=== PATIENT | male | born 1995 | race Caucasian/White ===

== ENCOUNTER 2024-07-26 11:26 | Emergency (ER) | payer OTHER, SELFPAY ==
--- NOTE | ~2024-07-26 | CT_ITS ---
EXAMINATION: CT HEAD WITHOUT CONTRAST CLINICAL INFORMATION: bruise behind R ear COMPARISON: April 14, 2019 is not available on PACS. TECHNIQUE: Contiguous axial imaging was performed from the skull base to vertex without intravenous administration of contrast. This CT examination was performed using dose optimization techniques as appropriate, variously including the following: *Automated exposure control *Adjustment of mA and/or kV according to patient size (this includes techniques or standardized protocols for targeted exams where dose is matched to indication/reason for exam; i.e. extremities or head) *Use of iterative reconstruction technique DLP: 1142 mGy-cm FINDINGS: Limited by patient's motion artifact. No acute intracranial hemorrhage, mass effect, midline shift, hydrocephalus or herniation. Charles-white matter differentiation is normal. Posterior cranial fossa contents demonstrated no acute intracranial hemorrhage. Sellar/suprasellar region demonstrated no gross masses. Craniocervical junction is intact. Retention cysts versus polyp in the posterior left ethmoid air cells. Tympanic cavities and mastoid cells are aerated. Dystrophic calcifications in the soft tissues of the ears. CT/CT head/brain wo IV con IMPRESSION: No acute intracranial hemorrhage or acute brain abnormality by CT. Electronically signed by: Aron Bustillo MD 07/26/2024 03:05 PM EDT
--- NOTE | ~2024-07-26 | XR_ITS ---
EXAMINATION: XR HAND AND WRIST COMPLETE LEFT HISTORY: pain COMPARISON: Comparison is made with the prior examination dated 04/14/2019. FINDINGS: Four views of the left wrist including a scaphoid view are submitted. Osseous mineralization is normal. There is no fracture or dislocation. The joint spaces are preserved. The soft tissues are unremarkable. XR/XR hand wrist LT IMPRESSION: Unremarkable examination of the left wrist. Electronically signed by: Surendra Ko MD 07/26/2024 11:52 AM EDT
[2024-07-26 11:34] VITALS: PULSE 84; RESP 18; TEMP 36.6; O2SAT 97; BMI 27.1
--- NOTE | 2024-07-26 11:34 | ED.GENADULT ---
HPI - General Adult General Chief complaint: General Medical Stated complaint: lump behind r ear Time Seen by Provider: 07/26/24 14:12 Source: patient and other (caregiver) Mode of arrival: ambulatory Limitations: other (some limitations with his autism) History of Present Illness ED Provider: DARLYN HPI narrative: 28 yo male with PMH of autism, intellectual disability, who [facility] jail they noted a bruise on his L hand today and also a bruise behind R ear - no falls or other signs of trauma he does have a history of hitting himself. He has 29/11 supervision. No unexplained bleeding/bruising other than behind his R ear complaint: bruiseing Onset (ago): day(s) (1) Location: head, left and upper extremity Radiation: non-radiation Severity: mild Relieving factors: none Exacerbating factors: none Associated symptoms: denies other symptoms Treatments prior to arrival: none Related Data Allergies Allergy/AdvReac Type Severity Reaction Status Date / Time No Known Allergies Allergy Verified 07/26/24 11:40 [No Known Allergies*] Review of Systems Review of Systems: ROS unable to be obtained due to developmental delay [facility] Past Medical History Source: nursing notes reviewed Medical History Intellectual disability Autism Social History Social History Smoked in Last 30 Days: No Use of substances other than those prescribed or required for medical reasons: No Advance Directives: No Advance Directives Information Provided: Yes Physical Exam ED Vital Signs: Vital Signs - 24 hr 07/26/24 11:34 Temperature 97.9 F Pulse Rate 84 Respiratory Rate 18 Pulse Oximetry 97 Oxygen Delivery Method Room Air BMI result Body Mass Index 27.1 Appearance: Alert. Oriented X3. No acute distress. Eyes: Pupils equal, round and reactive to light. ENT: Pharynx normal. behind R ear a a faint light purple half dollar sized bruise that is flat not red no lymphadenopathy the ext and internal ear exam is normal no blood and no hemotympanum very localized t[place] & [place] Neck: Normal inspection. Neck supple. CVS: Normal heart rate and rhythm. Pulses normal. Respiratory: No respiratory distress. Breath sounds normal. Abdomen: Soft and nontender. Skin: Skin warm and dry. Normal skin color. Normal skin turgor. Extremities: No lower extremity edema. No calf ttp L hand soft purple flat bruise no warmth or signs of infection, able to make fist and open hand Neuro: Oriented X 3. No motor deficit. No sensory deficit. CN2-12 intact Course Course Course Narrative: This is an RME: Additional HPI, ROS, PE not included below will be deferred to primary provider. RME assessment and note performed by: Muna Mcguire PA-C This is a [id number], with a hx of autism spectum disorder, intellectual disability, who presents to the ER, accompanied by jail workers, with complaints of emerson behind his left ear which was noticed this morning. Pain also with swelling overlying the 4th and 5th metacarpal bones. Unable to report what happened. R ear with area of erythema and excoriations. Plan: xray, further ER eval needed. Medical Decision Making Medical Decision Making [facility] Narrative: 28 yo male with PMH of autism and developmental delay here with c/o bruise on L hand and behind R ear - no signs of basilar skul fracture no other serious bruising noted to warrant a CBC they both appear older than 24 hours no signs of infection - xray of hand and CT head. If negative will DC home Differential Diagnosis Differential Diagnoses: The differential diagnosis associated with the presentation includes given no acute or signs of bruises that are concerning in other areas will hold off labs I did obtain xray of L hand R ear - CT scan ordered no other signs of basilar skull fracture Independent Interpretation I performed an independent interpretation of an: Plain X-Ray (no trauma) and CT Scan (normal ) Radiology Impression Discussion of test interpretation with radiology: I have reviewed the radiologist's reading. Independent Historian Clinical information obtained from an independent historian. History obtained from or confirmed by: Other External Record Review External record reviewed: Outpatient record Discharge Plan Discharge Clinical Impression: Contusion Patient Disposition: Home, Self-Care Instructions: Bone Bruise (ED) Additional Instructions: xray normal CT head negative for acute fracture return for any worsening symptoms or increased bruising any increase in bruising in unexplained places would warrant a CBC Print Language: Kiswahili
[2024-07-26 14:52] VITALS: BP 116/69; PULSE 67; RESP 14; TEMP 37.3; O2SAT 97
[2024-07-26 14:53] VITALS: BP 116/69
[2024-07-26] MEDS: cloNIDine HCL 0.1 MG TABLET PO (14:53)
[2024-07-26 15:14] VITALS: BP 116/69; PULSE 67; RESP 18; TEMP 37.3; O2SAT 97
== END 2024-07-26 15:28 | disposition home or self-care (01) ==
PROVIDERS: Emergency Provider Emergency Medicine; PCP Internal Medicine
DX: S00.431A Contusion of right ear, initial encounter (principal); S60.222A Contusion of left hand, initial encounter; X83.8XXA Intentional self-harm by other specified means, initial encounter; Y93.9 Activity, unspecified; Y92.199 Unspecified place in other specified residential institution as the place of occurrence of the external cause; Y99.9 Unspecified external cause status
CPT/HCPCS: 70450; 73110; 73130; 99284

== ENCOUNTER → 2024-07-26 11:40 | Outpatient (BNV) | payer OTHER, SELFPAY | PROVIDERS: PCP Internal Medicine; Visit Provider Radiology Diagnostic Radiology | DX: M79.642 Pain in left hand (principal); M25.532 Pain in left wrist; S00.93XA Contusion of unspecified part of head, initial encounter | CPT/HCPCS: 70450; 73110; 73130 ==